=== PATIENT | female | born 1940 | race Caucasian/White ===

== ENCOUNTER → 2016-10-05 | Outpatient (CLI) | payer OTHER ==
[~2016-10-05] MED LIST: AMLODIPINE BESYL5 MG PO; CELEXA10 MG; CITRACAL + D E1 EACH PO; CLEOCIN HCL150 MG PO; FISH OIL 1,2001 EAC3 PO; LORAZEPAM 0.50.5 MG PO; LUTEIN6 M1 PO; PERIDEX 0.12%473 M1 SSP; PERIDEX 0.12%473 M1 TP; SYNALAR30 GM TP; VITAMIN D32000 UNIT PO
== END ==
LOC: MRI 08:58
DX: M25.511 Pain in right shoulder (principal); R20.2 Paresthesia of skin

== ENCOUNTER → 2017-07-02 | Outpatient (CLI) | payer OTHER | LOC: MRI 06:22 | DX: G93.0 Cerebral cysts (principal); I99.8 Other disorder of circulatory system; J32.8 Other chronic sinusitis ==

== ENCOUNTER 2018-06-13 15:49 | Inpatient (IN) | payer OTHER ==
[~2018-06-13] VITALS: Ht 154.9 cm; Wt 51.3 kg
[2018-06-13 17:26] VITALS: BP 155/85
--- NOTE | 2018-06-13 20:08 | NUR ---
[age] YEAR OLD FEMALE ADMITTED TO WEST ROOM [address] UNDER THE CARE OD DR. RUTHERFORD. PT WAS A DIRECT ADMIT FROM [facility]. PT WAS BROUGHT HERE DUE TO CONFUSION AND AMS CHANGE THAT STARTED TODAY AT 1215PM. PT IS ALERT AND ORIENTED TIMES THREE. VSS, 95%RA, SR ON TELE. PT DENIES PAIN/SOA. PT UP TO RESTROOM TO WITH ASSIT OF ONE. AT BEDSIDE FOR ADMISSION ASSESSMENT. WILL CONTINUE TO [facility].
[2018-06-13 20:21] VITALS: BP 130/83
[2018-06-14] VITALS (7 sets, daily range): BP systolic 100–130; BP diastolic 57–79
[2018-06-14 03:34] LABS: URINE BILIRUBIN NEGATIVE (Negative); URINE BLOOD TRACE (Negative); URINE CLARITY CLEAR; URINE COLOR YELLOW; URINE GLUCOSE-RANDOM* NEGATIVE (Negative); URINE KETONES TRACE (Negative); URINE LEUKOCYTES-REFLEX NEGATIVE (Negative); URINE NITRITE-REFLEX NEGATIVE (Negative); URINE PROTEIN (DIPSTICK) NEGATIVE (Negative); URINE SPECIFIC GRAVITY 1.015 (1.005-1.035); URINE UROBILINOGEN 0.2 E.U./dl (0.2-1.0)
--- NOTE | 2018-06-14 04:09 | NUR ---
PATIENT IS ALERT TO SELF SITUATION AND PLACE. PATIENT IS CONFUSED OF EVENTS THAT TOOK PLACE TODAY. PATIENT IS FORGETFUL. [facility] IS A ONE FOR ORIENTATION. PATIENT HAS A STEADY GAIT IS SBA TO THE BATHROOM. PATIENT IS ROOM AIR. PATIENT LBM WAS THE 3RD. PATIENT IS PENDING MRI TODAY. PATIENT IS NSR TO SA ON TELE. 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 PATIENT HAS SCARS OF OLD SKIN GRAFTS FROM [place]. PATIENT CAN BE ANXIOUS AT TIMES. PATIENT CARES FOR WHOM HAS CANCER AND IT HAS CAUSED HER STRESS AND LOSS OF SLEEP. PATIENT IS RESTING COMFORTABLY IN BED. FALL PRECAUTIONS IN PLACE. WCM. PATIENT IS PROGRESSING TO GOALS.
[2018-06-14 04:56] LABS: ANION GAP 9 mmol/L (7-16); BUN 23 mg/dL (7-18); CALCIUM 8.9 mg/dL (8.5-10.1); CHLORIDE 104 mmol/L (98-107); CHOLESTEROL 225 mg/dL (<200); CO2 27 mmol/L (21-32); CREATININE 0.9 mg/dL (0.6-1.0); GLUCOSE 119 mg/dL (74-106); HDL CHOLESTEROL 90 mg/dL (>40); LDL CHOLESTEROL 121 mg/dL (<100); MAGNESIUM 2.1 mg/dL (1.8-2.4); POTASSIUM 3.9 mmol/L (3.5-5.1); SODIUM 140 mmol/L (136-145); TC:HDL 2.5 Ratio (Not establshd); TRIGLYCERIDE 71 mg/dL (<150); VLDL 14 mg/dL (<40)
[2018-06-14 05:10] LABS: HEMATOCRIT 32.9 % (37.0-47.0); HEMOGLOBIN 10.5 gm/dL (12.0-15.0); MCH 20.4 pg (26.0-34.0); MCHC 31.9 g/dL (28.0-37.0); MCV 63.8 fL (80.0-100.0); PLATELET COUNT 198 thou/uL (150-400); RBC 5.16 mil/uL (4.20-5.00); RDW 16.1 % (10.5-14.5); WBC 3.6 thou/uL (4.0-11.0)
[2018-06-14 05:16] LABS: SERUM ASSESSMENT Clear
[2018-06-14 06:50] LABS: ABSOLUTE NEUTROPHILS 1.7 thou/uL (1.4-8.2); ATYPICAL LYMPHS 5 %
[2018-06-14 06:51] LABS: PLATELET ESTIMATE NORMAL
[2018-06-14 06:52] LABS: ANISOCYTOSIS 1+; HYPOCHROMASIA 2+; MICROCYTES 2+; OVALOCYTES FEW; POIKILOCYTOSIS 1+
[2018-06-14] MEDS ORDERED: NORVASC5 MG PO (11:25)
[2018-06-14] MEDS ORDERED: PERIDEX 0.12%473 M1 MUCOUS MEM (12:36)
[2018-06-14] MEDS ORDERED: VITAMIN D1000 UNI1 PO ×2 (12:38→12:41)
[2018-06-14] MEDS ORDERED: FOSAMAX 70 MG T70 MG PO (12:42)
[2018-06-14] MEDS ORDERED: CITRACAL + D E1 EACH PO (12:43)
[2018-06-14] MEDS ORDERED: MACROBID 100 M100 M2 PO (12:46)
[2018-06-14] MEDS ORDERED: RESTASIS1 EACH OPHTHALMIC (12:47)
[2018-06-14] MEDS ORDERED: FISH OIL 1,001000 M2 PO (12:48)
[2018-06-14] MEDS ORDERED: BIOTENE MOIST44.3 ML MUCOUS MEM (12:50)
[2018-06-14] MEDS ORDERED: FLUOCINONIDE60 GM MUCOUS MEM (12:54)
[2018-06-14] MEDS ORDERED: RENOVA 0.02% CR40 GM TOP (12:58)
--- NOTE | 2018-06-14 15:45 | NUR ---
ASSESSMENT: CM REVIEWED CHART AND MET WITH PATIENT AT THE BEDSIDE. PTS DAUGHTER IS ALSO AT THE BEDSIDE. PT LIVES AT HOME WITH HER AND HER DAUGHTER LIVES THERE RIGHT NOW WELL. PT REPORTS LIVING IN A HOUSE AND HAS ONE STEP TO ENTER AND ABOUT 13 STEPS WITH HANDRAILS TO HER BEDROOM. PT REPORTS SHE AMBULATES INDEPENDENTLY AND IS INDEPENDENT WITH ADLS. PT REPORTS SHE HAS NOT HAD HH IN THE PAST THAT SHE IS AWARE OF. CM DISCUSSED ROLE. PT DOES NOT ANTICIPATING HAVING ANY NEEDS AT DISCHARGE. PT DID WELL WITH PT/OT. PSYCH HAS BEEN CONSULTED TO SEE HER REGARDING POSSIBLE AMNESIA. PT REPORTS HAVING NO NEEDS FROM CM AT DISCHARGE.
--- NOTE | 2018-06-14 18:18 | NUR ---
Assumed care of Pt at 0700. Pt aox4 - in no acute distress, pleasant, cooperative. up w/ sba. no episodes of forgetfulness. sinus on telemetry. psych eval today. mri negative. will cont to monitor. pt progressing toward poc goals.
[2018-06-14] MEDS ORDERED: LEVAQUIN 500 M500 M2 PO (20:50)
--- NOTE | 2018-06-14 23:28 | NUR ---
VSS. A&OX4. DR RUTHERFORD ROUNDED ON PATIENT THIS EVENING. NEW MEDICATION INFORMATION AND DISCHARGE EDUCATION PROVIDED TO PT AND DTR. PT DISCHARGED TO HOME WITH ALL BELONGINGS AROUND 2200.
[2018-06-15 00:05] LABS: GLYCOHEMOGLOBIN (HGB A1C) 5.6 % (4.8-5.6)
--- NOTE | 2018-06-15 11:07 | HC ---
[facility] [address] CONSULTATION Name: ESVIN TRIPP Room #: 359-P [facility] IN M.R.#: [id number] Admission: 06/13/18 ������������������ Attend Phys: Jeremy Lugo MD Discharge: 06/14/18 ������������������ Date of : 39 Report #: [id number] THIS REPORT FOR: //name// CC: Jeremy Saenz HISTORY OF PRESENT ILLNESS: The patient is a 77-year-old female who yesterday drove herself to [place] and before she left, she told her friend that she did not know where she was. Her friend took her to an Urgent Care at [facility]. They did a CT scan of the head, nothing was found. The Urgent Care recommended an MRI, but did not have one at that facility, so her friend brought her to [facility] where she was admitted. Her daughter who was also in the room states that she came to see her mother that evening after work and her mother was repeating herself. The patient has very spotty recollection of the events of yesterday, but is back to her normal self today. She has never had an episode like this before. She has had an MRI of the head, MRA of the head and carotid ultrasound, all of which are unremarkable. Her daughter states that her mother is under stress. 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 PAST SURGICAL HISTORY: Removal of a benign thymoma nodule, tonsillectomy, skin graft. MEDICATIONS: Citalopram 10 mg daily, amlodipine 5 mg daily, lorazepam 0.25 mg at bedtime, calcium with vitamin D, Lutein. ALLERGIES: PENICILLIN. VITAL SIGNS: Temperature is 37.2, pulse rate 84, respiratory rate 20, blood pressure 130/79, bedside pulse oximetry 98% on room air. LABORATORY DATA: Hematology: White blood cell count 3.8, hemoglobin 10.5, hematocrit 32.9, MCV 63.8, platelet count 198,000. Urinalysis, trace ketones, trace blood. Chemistry: Sodium 140, potassium 3.9, chloride 104, carbon dioxide 29, BUN 23, creatinine 0.9, GFR 61, glucose 119, calcium 8.9, magnesium 2.1. Cholesterol 225, LDL cholesterol 121, HDL cholesterol 90. IMAGING STUDIES: As mentioned in the history section. NEUROLOGIC EXAMINATION: Cranial nerves 2-12 are grossly intact. Motor exam demonstrates symmetrical strength in all 4 extremities with tone and bulk normal. Reflexes are trace throughout. Plantar responses are flexor. Coordination reveals intact [id number]. [place] [address] CONSULTATION Name: ESVIN TRIPP ZULY Room #: 359-P [facility] IN M.R.#: [id number] Admission: 06/13/18 ������������������ Attend Phys: Jeremy Lugo MD Discharge: 06/14/18 ������������������ Date of : 39 Report #: [id number] IMPRESSION AND PLAN: The patient has had an episode of transient global amnesia. I explained to her that her imaging studies are normal. She did mention the temporal lobe cyst. I explained to her that this was not mentioned on the MRI, although I see it was mentioned on previous CT scans of the head. Irregardless, the temporal lobe cyst is an incidental finding and not the cause of this episode. She then went on to relate two incidents of head trauma that had occurred as a child. 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 We also discussed her use of alprazolam and since she is taking such a low dose at bedtime, I suggested she try to take a quarter of a tablet and perhaps discontinue it in the future because this type of medication has been implicated in difficulty with memory; however, insomnia, also can cause difficulty with memory. The patient does not require any further diagnostic studies and from the neurological point of view should be able to go home today. I thank you for your kind referral of this most delightful lady. Please do not hesitate to contact me should you have any questions. ��������������������������������������������� <ELECTRONICALLY SIGNED> ���������������������������������������� By: Rose Becerra DO ��������������������������������������������� 06/15/18 1107 [id number] Rose Becerra DO /nt
== END 2018-06-14 22:21 | disposition home or self-care (01) | DRG 690 ==
LOC: 3W 15:49
PROVIDERS: Nurse Practitioner; ADMIT Internal Medicine
DX: N39.0 Urinary tract infection, site not specified (principal); G45.4 Transient global amnesia; I10 Essential (primary) hypertension; E78.5 Hyperlipidemia, unspecified; F41.9 Anxiety disorder, unspecified; G47.00 Insomnia, unspecified; E78.00 Pure hypercholesterolemia, unspecified; M81.0 Age-related osteoporosis without current pathological fracture; M19.90 Unspecified osteoarthritis, unspecified site; K21.9 Gastro-esophageal reflux disease without esophagitis; Z88.0 Allergy status to penicillin; Z87.891 Personal history of nicotine dependence; Z79.82 Long term (current) use of aspirin; Z79.899 Other long term (current) drug therapy
CPT/HCPCS: 10879